=== PATIENT | male | born 1975 | race Caucasian/White ===

== ENCOUNTER 2016-10-08 16:13 | Emergency (ER) | payer OTHER ==
[~2016-10-08] VITALS: Ht 182.9 cm; Wt 99.8 kg
--- NOTE | 2016-10-08 16:20 | NUR ---
ARRIVAL PT ARRIVED AMBULATORY TO ER C/O POSSIBLE DRUG REACTION. PT STATES "I WAS DOING ICE 3 DAYS AGO AND I THINK I MESSED UP AND MIXED IT WITH SOMEONE ELSES BLOOD. I WAS READING ON [employer] AND GOT FREAKED OUT BECAUSE I THINK MY BREATHING HAS SLOWED DOWN AND I THINK I'M HAVING SOME NUMBNESS IN MY ARMS AND LEGS. RIGHT NOW IT'S IN MY LEFT ARM AND LEG". NO ACUTE DISTRESS NOTED. EDP NOTIFIED OF PT ARRIVAL.
[2016-10-08] MEDS ORDERED: BENADRYL IM STA (17:15)
[2016-10-08] MEDS ORDERED: ZOFRAN IV STA (17:15)
[2016-10-08] MEDS ORDERED: CATAPRES PO STA (17:15)
[2016-10-08] MEDS ORDERED: NS 1000ML 1,000 ML SCH (17:30)
[2016-10-08 17:35] LABS: BASOPHIL % 0.5 % (0.0-0.2); EOSINOPHIL # 0.2 10^3/uL (0.0-0.2); EOSINOPHIL % 1.8 % (0.0-5.0); HEMATOCRIT 47.9 % (37.0-53.0); LYMPHOCYTES # 1.3 10^3/uL (1.0-4.8); LYMPHOCYTES % 15.3 % (24.0-44.0); MEAN CELL HGB CONCENTRATION 33.4 g/dL (33-37); MEAN CORP VOLUME 89.9 fL (78-100); MEAN PLATELET VOLUME 9.1 fL (7.8-11.0); MONOCYTES # 1.2 10^3/uL (0.3-0.8); MONOCYTES % 14.9 % (5.0-12.0); NEUTROPHIL # 5.5 10^3/uL (1.8-7.7); NEUTROPHILS % 66.9 % (41.0-85.0); RED CELL DISTRIBUTION WIDTH 13.6 % (11.5-14.5); WHITE BLOOD CELL 8.2 10^3/uL (4.5-11.0)
--- NOTE | 2016-10-08 17:37 | NUR ---
RAD PT TAKEN TO RAD
[2016-10-08 18:03] LABS: ALANINE AMINOTRANSFERASE 32 U/L (12-78); ALKALINE PHOSPHATASE 72 U/L (50-136); ASPARTATE AMINO TRANSFERASE 29 U/L (0-35); CALCIUM 10.2 mg/dL (8.4-10.5); CARBON DIOXIDE 30.2 mmol/L (20.0-32); GLUCOSE 118 mg/dL (70-110)
--- NOTE | 2016-10-08 18:04 | DIREP ---
PROCEDURE:XR ABDOMEN 2 VIEWS COMPARISON:None. INDICATIONS:pain TECHNIQUE:Flat and upright views of the abdomen are provided. FINDINGS: BOWEL GAS PATTERN:Normal. No obstruction. CALCIFICATIONS:None significant. LUNG BASES:Clear. BONES:Normal. OTHER:No additional findings. CONCLUSION:No acute abnormalities. Dictated by: Kurt Baker M.D. on 10/08/2016 at 06:02 PM
--- NOTE | 2016-10-08 18:12 | DIREP ---
PROCEDURE:CHEST 2 VIEWS COMPARISON:None. INDICATIONS:pain FINDINGS: LUNGS/PLEURA:No significant pulmonary parenchymal abnormalities. No effusions. VASCULATURE:Normal. Unremarkable pulmonary vasculature. CARDIAC:Normal. No cardiac silhouette abnormality or cardiomegaly. MEDIASTINUM:Normal. No visible mass or adenopathy. BONES:Normal. No fracture or visible bony lesion. OTHER:Negative. CONCLUSION:Normal chest examination. Dictated by: Kurt Baker M.D. on 10/08/2016 at 06:11 PM
[2016-10-08] MEDS ORDERED: BENADRYL ONE (18:26)
[2016-10-08] MEDS ORDERED: CATAPRES ONE (18:26)
[2016-10-08] MEDS ORDERED: ZOFRAN ONE (18:28)
[2016-10-08] MEDS ORDERED: NS 1000ML 1,000 ML ONE (18:32)
--- NOTE | 2016-10-08 18:38 | NUR ---
STATUS PATIENT RESTING COMFORTABLE. FAMILY MEMBERS TIMES TWO IN ROOM.
--- NOTE | 2016-10-08 19:02 | ER.PDOC ---
General Chief Complaint: General Complaint Stated Complaint: NOT FEELING WELL TRAVEL OUT OF US: No Time seen by MD: 17:00 Source: patient Exam Limitations: no limitations History of Present Illness Initial Comments Pt has a history of IVDA and sharing needles and blood. He stopped three days ago and feels jittery. He has no specific complaint but is very anxious. Timing/Duration: 1 week Severity: mild Allergies: Coded Allergies: No Known Allergies (Unverified , 10/08/16) Home Meds No Active Prescriptions or Reported Meds Past Medical History Medical History: no pertinent history Surgical History: no surgical history Social History Smoking: non-smoker Alcohol Use: occassionally Drug Use: Meth Reviewed Nursing Reviewed: Vital Signs, Abn. Noted, Nursing Assessment Review of Systems Constitutional: denies see HPI, denies chills, denies diaphoresis, denies fever , denies malaise, denies weakness, denies other EENTM: no symptoms reported, denies see HPI, denies eye pain, denies blurred vision, denies tearing, denies double vision, denies ear pain, denies ear discharge, denies nose pain, denies nose congestion, denies throat pain, denies throat swelling, denies mouth pain, denies mouth swelling, denies other Respiratory: no symptoms reported, see HPI, cough, orthopnea, shortness of breath, stridor, wheezing, other Cardiovascular: no symptoms reported, denies see HPI, denies chest pain, denies edema, denies palpitations, denies syncope, denies other Gastrointestinal: no symptoms reported, denies see HPI, denies abdominal pain, denies constipation, denies diarrhea, denies nausea, denies vomiting, denies other Genitourinary: no symptoms reported, denies see HPI, denies discharge, denies dysuria, denies frequency, denies hematuria, denies pain, denies other Musculoskeletal: muscle pain, muscle stiffness Psychiatric/Neurological: anxiety Physical Exam General Appearance: No Apparent Distress EENT: eyes nml inspection Neck: Non-Tender Respiratory: chest non-tender Gastrointestinal: Normal Bowel Sounds Rectal: Normal Exam Back: Normal Inspection Extremities: Normal Range of Motion Neurologic/Psychiatric: Alert, Normal Mood/Affect, Oriented x 3 Skin: Normal Color Results/Orders Results/Orders Laboratory Tests Test 10/08/16 17:31 White Blood Count 8.2 10^3/uL (4.5-11.0) Red Blood Count 5.33 10^6/uL (4.50-5.90) Hemoglobin 16.0 g/dL (13.9-16.3) Hematocrit 47.9 % (37.0-53.0) Mean Corpuscular Volume 89.9 fL (78-100) Mean Corpuscular Hemoglobin 30.0 pg (26-34) Mean Corpuscular Hemoglobin Concent 33.4 g/dL (33-37) Red Cell Distribution Width 13.6 % (11.5-14.5) Platelet Count 292 10^3/uL (150-400) Mean Platelet Volume 9.1 fL (7.8-11.0) Neutrophils (%) (Auto) 66.9 % (41.0-85.0) Lymphocytes (%) (Auto) 15.3 % (24.0-44.0) Monocytes (%) (Auto) 14.9 % (5.0-12.0) Neutrophils # (Auto) 5.5 10^3/uL (1.8-7.7) Lymphocytes # (Auto) 1.3 10^3/uL (1.0-4.8) Monocytes # (Auto) 1.2 10^3/uL (0.3-0.8) Absolute Immature Granulocyte (auto 0.05 10^3 u/L (0-2) Eosinophils % 1.8 % (0.0-5.0) Basophils % 0.5 % (0.0-0.2) Basophils # 0.0 10^3/uL (0.0-0.1) Eosinophil Count 0.2 10^3/uL (0.0-0.2) Prothrombin Time 11.0 SEC (9.8-11.9) Prothromb Time International Ratio 1.0 Activated Partial Thromboplast Time 22.9 SEC (24.67-30.72) Sodium Level 141 mmol/L (132-145) Potassium Level 5.0 mmol/L (3.6-5.2) Chloride Level 102.0 mmol/L (96-109) Carbon Dioxide Level 30.2 mmol/L (20.0-32) Anion Gap 13.8 Blood Urea Nitrogen 23 mg/dL (7-18) Creatinine 1.24 mg/dL (0.59-1.40) Estimated GFR () 77.4 BUN/Creatinine Ratio 18.0 Glucose Level 118 mg/dL (70-110) Calcium Level 10.2 mg/dL (8.4-10.5) Total Bilirubin 1.0 mg/dL (0.2-1.0) Aspartate Amino Transf (AST/SGOT) 29 U/L (0-35) Alanine Aminotransferase (ALT/SGPT) 32 U/L (12-78) Alkaline Phosphatase 72 U/L (50-136) Total Creatine Kinase 427 U/L (39-308) Creatine Kinase MB 1.3 ng/mL (0.5-3.6) Troponin I < 0.02 ng/mL (0.00-0.05) Pro-B-Type Natriuretic Peptide 79 pg/mL (0-125) Total Protein 8.8 g/dL (6.4-8.2) Albumin 4.1 g/dL (3.4-5.0) Globulin 4.7 Percent Immature Gran (Cell Imm) 0.60 % (0.00-0.50) Helicobacter pylori Screen Positive (NEGATIVE) Administered Medications Medications (Trade) Dose Ordered Sig/Srini Route PRN Reason Start Time Stop Time Status Last Admin Dose Admin Sodium Chloride 1,000 ml @ 999 mls/hr Q1H1M IV 10/08/16 17:30 11/07/16 17:29 10/08/16 18:35 Ondansetron HCl (Zofran) 4 mg STAT STAT IV 10/08/16 17:15 10/08/16 17:21 DC 10/08/16 18:37 Clonidine (Catapres) 0.1 mg STAT STAT PO 10/08/16 17:15 10/08/16 17:21 DC 10/08/16 18:35 Diphenhydramine HCl (Benadryl) 50 mg STAT STAT IM 10/08/16 17:15 10/08/16 17:21 DC 10/08/16 18:35 EKG/XRAY/CT/US EKG: NSR, rhythm (sinus arythmia) Departure Time of Disposition: 19:00 Disposition: 01 HOME, SELF-CARE Impression: Primary Impression: Anxiety Additional Impression: Hypertension Referrals: PCP,UNKNOWN (PCP) PRIMARY CARE PROVIDER Scripts No Active Prescriptions or Reported Meds Comments Drug withdrawal. Will give CLonidine and ask him to see PCP BRANDON,CHESTER J MD Oct 08, 2016 19:02
--- NOTE | 2016-10-08 19:22 | NUR ---
IV IV DC'D. DRESSING APPLIED.
== END 2016-10-08 19:17 | disposition home or self-care (01) ==
LOC: ER 16:13
DX: F41.9 Anxiety disorder, unspecified (principal); I10 Essential (primary) hypertension; M79.1 Myalgia; R79.1 Abnormal coagulation profile; F15.10 Other stimulant abuse, uncomplicated
CPT/HCPCS: 36415; 71020; 74020; 80053; 82550; 82553; 83880; 84484; 85025; 85610; 85730; 86677; 93005; 96361; 96372; 96374; 99285; J1200; J2405; J7030

== ENCOUNTER 2016-10-10 15:51 | Emergency (ER) | payer OTHER ==
[~2016-10-10] VITALS: Ht 182.9 cm; Wt 99.8 kg
--- NOTE | 2016-10-10 15:52 | NUR ---
ARRIVAL TO ER PATIENT ARRIVED TO ER ROOM 5. PATIENT VERBALIZED THAT HE DOES NOT FEEL RIGHT. WHEN ASKED ABOUT WHAT SYPMTOMS PATIENT IS HAVING, PATIENT STATES, "I FUCKED UP AND SHOT UP ICE THE OTHER DAY AND WHEN I DID MY BLOOD AND ANOTHER PERSON'S BLOOD MIXED. NOW, I'M FEELING DRAINED OF ENERGY AND SOMETHING IS WRONG. I'M NOT SURE WHAT BUT I JUST KNOW SOMETHING IS WRONG." VERBALIZED UNDERSTANDING. AAOX3. PERRL. LUNGS CTA IN ALL ENGEL. RR 20 EVEN AND NON LABORED. O2 SAT 98% ON RA. HR 89 S1S2 NOTED. BOWEL SOUNDS ACTIVE X4. ABD SOFT AND NON TENDER. NO EDEMA NOTED IN BILAT LE. VITALS AND PATIENT STATUS REPORTED TO DR. TAYLOR. VERBALIZED UNDERSTANDING.
--- NOTE | 2016-10-10 15:58 | NUR ---
SUICIDE SCREEN WHEN ASSESSING PATIENT WITH SUICIDE SCREEN, PATIENT DENIES WANTING TO HURT HIMSELF OR OTHERS. DENIES EVER HAVING SUICIDAL IDEATION. PATIENT VERBALIZED, "I'M NOT SUICIDAL, I'M JUST KNOW THAT WHEN OUR BLOOD MIXED, SOMETHING BAD HAPPENED AND I JUST DON'T FEEL RIGHT, I FEEL LIKE I'M GOING TO ." DR. TAYLOR NOTIFIED OF PATIENT STATUS AND CONVERSTAION. VERBALIZED UNDERSTANDING.
--- NOTE | 2016-10-10 16:11 | NUR ---
DR. BRANDON TAYLOR AT BEDSIDE TALKING WITH PATIENT.
--- NOTE | 2016-10-10 16:21 | NUR ---
RT/RAD/LAB RT/RAD/LAB ALL AT BEDSIDE FOR PROCEDURES.
[2016-10-10] MEDS ORDERED: BENADRYL IM STA (16:28)
[2016-10-10] MEDS ORDERED: BENADRYL ONE (16:31)
[2016-10-10] MEDS ORDERED: ZOFRAN ODT ONE (16:31)
[2016-10-10] MEDS ORDERED: ZOFRAN ODT SL STA (16:32)
--- NOTE | 2016-10-10 16:36 | NUR ---
DR. BRANDON TAYLOR AT BEDSIDE TALKING WITH PATIENT. DR. TAYLOR TALKING WITH PATIENT ABOUT ANXIETY AND ANXIOUS STATE. PATIENT DISAGREE WITH DR. TAYLOR SAYING, "I KNOW WHAT ANXIETY IS AND I'M NOT FEELING THAT WAY. I DISAGREE WITH WHAT YOU'RE SAYING AND I THINK YOU'RE WRONG." DR. TAYLOR ACKNOWLEDGED PATIENT'S FEELINGS AND ENCOURAGED HIM TO SEE PRIMARY DOCTOR OR GET A SECOND OPINION. PATIENT VERBALIZED UNDERSTANDING. DENIES FURTHER QUESTIONS AT THIS TIME.
[2016-10-10 16:37] LABS: BASOPHIL % 0.5 % (0.0-0.2); EOSINOPHIL # 0.1 10^3/uL (0.0-0.2); EOSINOPHIL % 1.1 % (0.0-5.0); HEMATOCRIT 47.7 % (37.0-53.0); HEMOGLOBIN 16.2 g/dL (13.9-16.3); LYMPHOCYTES # 1.3 10^3/uL (1.0-4.8); MEAN CELL HGB 29.7 pg (26-34); MEAN CORP VOLUME 87.5 fL (78-100); MONOCYTES # 0.8 10^3/uL (0.3-0.8); MONOCYTES % 10.4 % (5.0-12.0); NEUTROPHIL # 5.4 10^3/uL (1.8-7.7); NEUTROPHILS % 70.7 % (41.0-85.0); PLATELET COUNT 344 10^3/uL (150-400); RED CELL DISTRIBUTION WIDTH 13.2 % (11.5-14.5); WHITE BLOOD CELL 7.6 10^3/uL (4.5-11.0)
[2016-10-10] MEDS ORDERED: ATIVAN ONE (16:43)
[2016-10-10] MEDS ORDERED: ATIVAN PO STA (16:55)
--- NOTE | 2016-10-10 16:55 | ER.PDOC ---
General Chief Complaint: General Complaint Stated Complaint: NOT FEELING WELL TRAVEL OUT OF US: No Time seen by MD: 15:55 History of Present Illness Allergies: Coded Allergies: No Known Allergies (Unverified , 10/08/16) Home Meds No Active Prescriptions or Reported Meds Vital Signs I worked this patient up fully on Saturday. He is scared and anxious. He will not cooperate. I am tying to calm him down, and the nurse is too. Patient wishes to seek a higher level of care in [place] Past Medical History Medical History: no pertinent history Surgical History: no surgical history Social History Smoking: non-smoker Alcohol Use: none Drug Use: none Review of Systems Constitutional: see HPI EENTM: no symptoms reported Respiratory: no symptoms reported Cardiovascular: no symptoms reported Gastrointestinal: no symptoms reported Genitourinary: no symptoms reported Musculoskeletal: no symptoms reported Skin: no symptoms reported Psychiatric/Neurological: no symptoms reported Immunological/Allergic: no symptoms reported Physical Exam General Appearance: Anxious EENT: eyes nml inspection Respiratory: chest non-tender Extremities: Normal Range of Motion 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 Lymphatic: No Adenopathy Results/Orders Results/Orders Laboratory Tests Test 10/10/16 16:34 White Blood Count 7.6 10^3/uL (4.5-11.0) Red Blood Count 5.45 10^6/uL (4.50-5.90) Hemoglobin 16.2 g/dL (13.9-16.3) Hematocrit 47.7 % (37.0-53.0) Mean Corpuscular Volume 87.5 fL (78-100) Mean Corpuscular Hemoglobin 29.7 pg (26-34) Mean Corpuscular Hemoglobin Concent 34.0 g/dL (33-37) Red Cell Distribution Width 13.2 % (11.5-14.5) Platelet Count 344 10^3/uL (150-400) Mean Platelet Volume 9.0 fL (7.8-11.0) Neutrophils (%) (Auto) 70.7 % (41.0-85.0) Lymphocytes (%) (Auto) 17.0 % (24.0-44.0) Monocytes (%) (Auto) 10.4 % (5.0-12.0) Neutrophils # (Auto) 5.4 10^3/uL (1.8-7.7) Lymphocytes # (Auto) 1.3 10^3/uL (1.0-4.8) Monocytes # (Auto) 0.8 10^3/uL (0.3-0.8) Absolute Immature Granulocyte (auto 0.02 10^3 u/L (0-2) Eosinophils % 1.1 % (0.0-5.0) Basophils % 0.5 % (0.0-0.2) Basophils # 0.0 10^3/uL (0.0-0.1) Eosinophil Count 0.1 10^3/uL (0.0-0.2) Percent Immature Gran (Cell Imm) 0.30 % (0.00-0.50) Administered Medications Medications (Trade) Dose Ordered Sig/Srini Route PRN Reason Start Time Stop Time Status Last Admin Dose Admin Ondansetron HCl (Zofran Odt) 4 mg STAT STAT SL 10/10/16 16:32 10/10/16 16:33 DC 10/10/16 16:41 Departure Time of Disposition: 16:55 Impression: Primary Impression: Anxiety Referrals: PCP,UNKNOWN (PCP) PRIMARY CARE PROVIDER Scripts No Active Prescriptions or Reported Meds Comments I worked this patient up fully on Saturday. He is scared and anxious. He will not cooperate. I am tying to calm him down, and the nurse is too. [facility] 2016 16[facility]55
--- NOTE | 2016-10-10 17:05 | NUR ---
DR. BRANDON TAYLOR AT BEDSIDE TALKING WITH PATIENT. PATIENT STATES, "I KNOW THAT YOU'RE SAYING MY BLOODWORK IS FINE BUT I KNOW SOMETHING IS WRONG." DR. TAYLOR TALKING WITH PATIENT ABOUT LAB WORK FROM THIS VISIT AND PREVIOUS VISIT SATURDAY AND AGAIN TALKING ABOUT ANXIETY. PATIENT STATES, "I JUST DON'T AGREE WITH YOU THAT IT'S JUST ANXIETY DOCTOR." DR. TAYLOR ENCOURAGED PATIENT TO AGAIN SEEK PRIMARY PHYSICIAN OR GET SECOND OPINION. PATIENT VERBALIZED UNDERSTANDING AND THAT HE WOULD LIKE TO LEAVE TO GO TO [place]. NEW ORDERS RECEIVED FROM DR. TAYLOR.
[2016-10-10 17:18] LABS: ALANINE AMINOTRANSFERASE 25 U/L (12-78); ALKALINE PHOSPHATASE 77 U/L (50-136); ASPARTATE AMINO TRANSFERASE 20 U/L (0-35); CALCIUM 9.9 mg/dL (8.4-10.5); CARBON DIOXIDE 28.2 mmol/L (20.0-32); GLUCOSE 107 mg/dL (70-110)
[2016-10-10 17:20] LABS: ACETAMINOPHEN < 1 ug/mL (10-30)
== END 2016-10-10 17:13 | disposition home or self-care (01) ==
LOC: ER 15:51
DX: F41.9 Anxiety disorder, unspecified (principal)
CPT/HCPCS: 36415; 80053; 82550; 82553; 84484; 84703; 85025; 85660; 93005; 99285; G0481; G0482; G0483; Q0162; J1200